=== PATIENT | male | born 1995 | race Caucasian/White ===

== ENCOUNTER 2017-09-03 14:14 | Inpatient (IN) | payer MEDICAID, OTHER ==
[~2017-09-03] VITALS: Ht 177.8 cm; Wt 96.0 kg
[2017-09-03 14:57] LABS: BASOPHILS # (AUTO) 0.1 X10'3 (0-0.2); BASOPHILS % (AUTO) 0.5 % (0-1); EOSINOPHILS % (AUTO) 0.3 % (0-6); HEMOGLOBIN 14.3 g/dl (14.0-17.9); LYMPHOCYTES # (AUTO) 1.6 X10'3 (1.1-4.8); LYMPHOCYTES % (AUTO) 10.3 % (21-51); MEAN CORPUSCULAR HEMOGLOBIN 29.9 PG (27.0-31.0); MEAN CORPUSCULAR VOLUME 85.4 FL (78-98); MEAN PLATELET VOLUME 8.4 FL (7.4-10.4); MONOCYTES # (AUTO) 1.1 X10'3 (0-0.9); NEUTROPHILS # (AUTO) 12.5 X10'3 (1.8-7.7); NEUTROPHILS % (AUTO) 81.9 % (42-75); PLATELET COUNT 186 X10'3 (140-440); RED CELL DISTRIBUTION WIDTH 13.1 % (11.5-14.5); WHITE BLOOD COUNT 15.3 X10'3 (4.5-11.0)
[2017-09-03 14:58] LABS: CLARITY,URINE Clear (Clear); COLOR,URINE Yellow (Yellow); GLUCOSE, URINE Negative (Neg); KETONES,URINE Negative (Neg); LEUKOCYTE ESTERASE ,URINE Negative (Neg); NITRITES, URINE Negative (Neg); OCCULT BLOOD,URINE Negative (Neg); PROTEIN,URINE Negative (Neg); UROBILINOGEN,URINE 0.2 E.U/dL (0.2-1.0)
[2017-09-03 15:01] LABS: UA COLLECTION TYPE CLN CATCH MIDSTREAM
[2017-09-03 15:06] LABS: PROTHROMBIN TIME 10.2 SECONDS (9.0-12.0)
[2017-09-03 15:12] LABS: TOTAL CELLS COUNTED 100
[2017-09-03 15:13] LABS: PLATELET ESTIMATE NORMAL
[2017-09-03 15:15] LABS: ALANINE AMINOTRANSFERASE 25 U/L (12-78); ALBUMIN 4.3 G/DL (3.4-5.0); ALBUMIN/GLOBULIN RATIO 1.1 (1.1-1.5); ALKALINE PHOSPHATASE 107 IU/L (20-180); ANION GAP 9 (8-16); ASPARTATE AMINO TRANSFERASE 21 U/L (10-37); BILIRUBIN,TOTAL 0.9 MG/DL (0.1-1.0); BLOOD UREA NITROGEN 12 MG/DL (7-18); CALCIUM 9.3 MG/DL (8.5-10.1); CHLORIDE 104 MMOL/L (99-107); CREATININE 0.86 MG/DL (0.60-1.10); GLUCOSE 96 MG/DL (70-104); POTASSIUM 3.9 MMOL/L (3.5-5.1); SODIUM 142 MMOL/L (135-145); TOTAL CARBON DIOXIDE 28.7 MMOL/L (24-32); TOTAL PROTEIN 8.1 G/DL (6.4-8.2); eGFR > 90 ML/MIN
[2017-09-03] MEDS ORDERED: ondansetron/PF 4mg/2ml inj IV ONE ×2 (16:40→17:50)
[2017-09-03] MEDS ORDERED: normal saline 1000ML IV soln IVB ONE (16:40)
[2017-09-03] MEDS: morphine 4 MG/ML inj SYRINge IV PRN ×2 (16:48→17:58)
[2017-09-03] MEDS ORDERED: morphine 4 MG/ML inj SYRINge IV PRN ×3 (17:50→21:30)
[2017-09-03] MEDS ORDERED: IBUP200C5 PO (18:24)
[2017-09-03] MEDS ORDERED: dextrose 5%-1/2 normal saline 1,000 ML IV SCH (20:06)
[2017-09-03] MEDS ORDERED: magnesium hydroxide 30ml (MOM) UD suspension PO PRN (20:10)
[2017-09-03] MEDS ORDERED: acetaminophen 325mg tablet PO PRN (20:10)
[2017-09-03] MEDS ORDERED: ondansetron/PF 4mg/2ml inj IV PRN ×3 (20:10→23:05)
[2017-09-03] MEDS ORDERED: NO HOME MEDS (20:19)
[2017-09-03] MEDS: CefTRIAXone/D5W-Rocephin 1gm 50 ML IV SCH (20:27)
[2017-09-03] MEDS: metroNIDAZOLE-Flagyl 500mg/NS 100 ML IV SCH (21:04)
[2017-09-03] MEDS ORDERED: labetalol 20mg/4ml (5mg/ml) syringe IV PRN (21:30)
[2017-09-03] MEDS ORDERED: hydrALAZINE 20mg/ml inj. IV PRN (21:30)
[2017-09-03] MEDS ORDERED: fentaNYL/PF 50MCG/1 ML 2ML syringe IV PRN ×2 (21:30)
[2017-09-03] MEDS ORDERED: ringers solution, lacted 1,000 ML IV SCH (21:30)
[2017-09-03] MEDS ORDERED: BUPIVAcaine/PF 7.5mg/ml (0.75%) 10ml vial ONE (21:44)
[2017-09-03] MEDS ORDERED: normal saline 1000ml 1,000 ML IV SCH (21:48)
[2017-09-03] MEDS: ceFOXitin 2 GM ADDvantage bag 100 ML IV ONE (21:50)
[2017-09-03] MEDS ORDERED: fentaNYL/PF 50MCG/1 ML 2ML syringe ONE (21:59)
[2017-09-03] MEDS ORDERED: LIDOcaine 2% (20mg/ml) 5ml vial ONE (22:00)
[2017-09-03] MEDS ORDERED: propofol inj 20 ML IV ONE (22:00)
[2017-09-03] MEDS ORDERED: rocuronium 10mg/ml inj IV ONE (22:00)
[2017-09-03] MEDS ORDERED: midazolam 2 mg/2 ml injection ONE (22:00)
[2017-09-03] MEDS ORDERED: glycopyrrolate 0.2mg/ml inj ONE (22:00)
[2017-09-03] MEDS ORDERED: HYDROcodone/acetaminophen 10/325mg tab PO PRN (23:05)
[2017-09-03 23:10] VITALS: BP 119/62
[2017-09-03 23:20] VITALS: BP 125/66
[2017-09-03] MEDS ORDERED: acetaminophen 1,000mg/100ml IV 100 ML IV ONE (23:25)
[2017-09-03 23:30] VITALS: BP 131/69
[2017-09-03 23:40] VITALS: BP 125/78
[2017-09-04] VITALS (11 sets, daily range): BP systolic 115–152; BP diastolic 60–76
[2017-09-04] MEDS ORDERED: ceFOXitin 1 GM ADDVANTAGE BAG 1,000 MG in normal saline 100ml IV soln 100 ML IV SCH ×2
[2017-09-04] MEDS ORDERED: ceFOXitin 2 GM ADDvantage bag 100 ML IV ONE (00:19)
[2017-09-04] MEDS: ceFOXitin 2 GM ADDvantage bag 100 ML IV ONE (00:24)
[2017-09-04] MEDS ORDERED: [UNRECOGNIZED DRUG - OTHER] ONE (01:10)
[2017-09-04] MEDS: CEFOXITIN IV SCH ×3 (01:31)
[2017-09-04] MEDS: NORMAL SALINE IV SCH ×3 (01:31)
[2017-09-04] MEDS: ADDVANTAGE IV SCH ×3 (01:31)
[2017-09-04] MEDS: morphine 2 MG/ML inj. syringe IV PRN ×2 (01:31→08:43)
[2017-09-04] MEDS: potassium CL 20mEq in D5-1/2NS 1,000 ML IV SCH ×3 (02:42→13:48)
[2017-09-04] MEDS: metroNIDAZOLE-Flagyl 500mg/NS 100 ML IV SCH ×3 (02:42→16:17)
[2017-09-04] MEDS: ketorolac tromethamine 15mg/ml inj. IV PRN ×2 (05:03→11:23)
[2017-09-04 06:11] LABS: BASOPHILS % (AUTO) 0 % (0-1); EOSINOPHILS % (AUTO) 0 % (0-6); HEMATOCRIT 39.7 % (42.0-52.0); HEMOGLOBIN 13.7 g/dl (14.0-17.9); LYMPHOCYTES # (AUTO) 0.9 X10'3 (1.1-4.8); MEAN CORPUSCULAR HEMOGLOBIN 29.7 PG (27.0-31.0); MEAN CORPUSCULAR HGB CONC 34.6 % (33.0-36.5); MEAN CORPUSCULAR VOLUME 85.8 FL (78-98); MEAN PLATELET VOLUME 9.1 FL (7.4-10.4); MONOCYTES # (AUTO) 0.4 X10'3 (0-0.9); MONOCYTES % (AUTO) 2.9 % (2-12); NEUTROPHILS # (AUTO) 11.9 X10'3 (1.8-7.7); NEUTROPHILS % (AUTO) 90.1 % (42-75); PLATELET COUNT 182 X10'3 (140-440); RED BLOOD COUNT 4.63 X10'6 (4.70-6.10); RED CELL DISTRIBUTION WIDTH 13.4 % (11.5-14.5); WHITE BLOOD COUNT 13.2 X10'3 (4.5-11.0)
[2017-09-04 06:38] LABS: ALBUMIN 3.8 G/DL (3.4-5.0); ANION GAP 10 (8-16); BLOOD UREA NITROGEN 8 MG/DL (7-18); BUN/CREATININE RATIO 8.4 (5.4-32.0); CHLORIDE 103 MMOL/L (99-107); CREATININE 0.95 MG/DL (0.60-1.10); GLUCOSE 161 MG/DL (70-104); MAGNESIUM 1.8 MG/DL (1.5-2.4); PHOSPHORUS 2.7 MG/DL (2.3-4.5); POTASSIUM 4.2 MMOL/L (3.5-5.1); SODIUM 139 MMOL/L (135-145); TOTAL CARBON DIOXIDE 26.3 MMOL/L (24-32); eGFR > 90 ML/MIN
[2017-09-04] MEDS: ceFOXitin 2 GM ADDvantage bag 100 ML IV SCH ×2 (09:50→15:05)
[2017-09-04] MEDS: CefTRIAXone/D5W-Rocephin 1gm 50 ML IV SCH (11:18)
[2017-09-04] MEDS ORDERED: ketorolac trometh. 30mg/ml inj. IV PRN (12:59)
[2017-09-04] MEDS ORDERED: HYDR-565 PO (16:37)
== END 2017-09-04 18:30 | disposition home or self-care (01) | DRG 225 ==
LOC: ER 14:14 → ED HOLD 20:06 → SUR 3N 23:02
PROVIDERS: ADMIT Emergency Medicine; ATTEND Surgery
PROC: 0DTJ4ZZ Resection of Appendix, Percutaneous Endoscopic Approach (ICD-10-PCS; principal; 2017-09-03 22:00)
DX: K35.3 Acute appendicitis with localized peritonitis (principal); F12.90 Cannabis use, unspecified, uncomplicated
CPT/HCPCS: 36415; 74176; 80048; 80053; 81003; 83735; 84100; 85025; 85610; 87070; 96361; 96374; 96375; 96376; 99285; A4315; A4353; A6251; A6449; A7000; J0131; J0694; J0696; J1885; J2001; J2250; J2270; J2405; J2704; J3010; J3490; J7030; J7120

== ENCOUNTER 2019-04-05 13:02 | Emergency (ER) | payer MEDICAID, OTHER ==
[~2019-04-05] VITALS: Ht 177.8 cm; Wt 92.3 kg
[~2019-04-05 13:02] MED LIST: NO HOME MEDS
[2019-04-05 13:24] VITALS: BP 130/70
[2019-04-05] MEDS ORDERED: DOXY100C43 PO (14:45)
== END 2019-04-05 15:11 | disposition home or self-care (01) ==
LOC: ER 13:02
DX: S80.862A Insect bite (nonvenomous), left lower leg, initial encounter (principal); F12.90 Cannabis use, unspecified, uncomplicated; Z79.899 Other long term (current) drug therapy; W57.XXXA Bitten or stung by nonvenomous insect and other nonvenomous arthropods, initial encounter; Y93.89 Activity, other specified; Y92.89 Other specified places as the place of occurrence of the external cause; Y99.8 Other external cause status
CPT/HCPCS: 99283

== ENCOUNTER 2020-03-10 11:40 | Emergency (ER) | payer MEDICAID, OTHER ==
[~2020-03-10] VITALS: Ht 177.8 cm; Wt 100.0 kg
[2020-03-10 14:53] VITALS: BP 140/74
== END 2020-03-10 17:27 | disposition home or self-care (01) ==
LOC: ER 11:41
DX: R07.89 Other chest pain (principal); R20.0 Anesthesia of skin; R51.9 Headache, unspecified; Z86.14 Personal history of Methicillin resistant Staphylococcus aureus infection; Z90.89 Acquired absence of other organs
CPT/HCPCS: 71045; 93005; 99283